=== PATIENT | female | born 1980 | race Caucasian/White ===

== ENCOUNTER → 2023-08-08 17:37 | Outpatient (REF) | payer OTHER, SELFPAY | LOC: HWWDC 17:37 | PROVIDERS: ATTENDING PHYSICIAN Obstetrics & Gynecology; FAMILY PHYSICIAN Family Medicine | DX: Z12.31 Encounter for screening mammogram for malignant neoplasm of breast (principal) | CPT/HCPCS: 77063; 77067 ==

== ENCOUNTER → 2023-08-19 13:17 | Outpatient (REF) | payer OTHER, SELFPAY | LOC: HWRAD 13:17 | PROVIDERS: ATTENDING PHYSICIAN Obstetrics & Gynecology; FAMILY PHYSICIAN Family Medicine | DX: Z00.01 Encounter for general adult medical examination with abnormal findings (principal); N92.0 Excessive and frequent menstruation with regular cycle | CPT/HCPCS: 76830; 76856 ==

== ENCOUNTER 2023-11-23 06:20 | Day surgery (SDC) | payer OTHER, SELFPAY ==
[2023-11-11 09:43] VITALS: BMI 31.9
[2023-11-11 10:00] LABS: % Basophils 0.3 % (0-2); % Eosinophils 0.8 % (0-6); % Immature Granulocytes 0.2 % (0-0.5); % Lymphocytes 22.6 % (20.5-51.1); % Monocytes 6.7 % (1.7-9.3); % Neutrophils 69.4 % (42.2-75.2); Absolute Eosinophils 0.1 10^3/uL (0-0.7); Absolute Lymphocytes 1.5 10^3/uL (1.2-3.4); Absolute Monocytes 0.4 10^3/uL (0.1-0.6); Absolute Neutrophils 4.6 10^3/uL (1.4-6.5); Hematocrit 37.2 % (37.0-47.0); Hemoglobin 12.5 g/dL (12.0-16.0); Mean Corp Hgb Conc. 33.6 g/dL (33.0-37.0); Mean Corpuscular Hgb 29.4 pg (27.0-31.0); Mean Corpuscular Volume 87.5 fL (81.0-99.0); Nucleated Red Blood Cells % 0 %; Platelet Count 255 10^3/uL (130-400); Red Blood Cell Count 4.25 10^6/uL (4.20-5.40); Red Cell Dist. Width 12.6 % (11.5-14.5); White Blood Cell Count 6.6 10^3/uL (4.8-10.8)
[2023-11-11 10:11] LABS: Blood Urea Nitrogen 13 mg/dl (7-17); Carbon Dioxide 25 mmol/L (22-30); Chloride 106 mmol/L (98-107); Estimated Creatinine Clearance 104 ml/min; Glucose 89 mg/dl (70-99); Potassium 4.3 mmol/L (3.5-5.1); Sodium 139 mmol/L (135-145); eGFR > 60.00
[2023-11-11 10:27] LABS: Beta HCG Quantitative < 2.39 mIU/ml
[2023-11-23] VITALS (9 sets, daily range): BP systolic 111–127; BP diastolic 66–81; BMI 31.9
[2023-11-23] MEDS: TYLENOL 1000 MG PO (10:19)
[2023-11-23] MEDS: NEURONTIN 100 MG PO (10:19)
[2023-11-23] MEDS: NORMOSOL-R 1000 IV (10:30)
--- NOTE | 2023-11-23 11:40 | W.SUR.PREOP ---
Pre-Operative Surgical Note
-
I have examined this patient prior to the performance of the scheduled procedure.
The patient's condition is unchanged from the time of the current History and
Physical and the patient is able to undergo the scheduled procedure.
--- NOTE | 2023-11-23 12:29 | W.IMMPOSTOP ---
Surgical Immed Post Op Note
-
Primary Surgeon: Osiris Ramirez,
Assisting Surgeon: none
Pre-op Diagnosis: menorrhagia, possible endometrial polyp
Post-op Diagnosis: same
Procedure Performed:Diagnostic hysteroscopy D&C
Anesthesia Type: general Dr. Danielle
Specimen / Cultures: 1. endocervical curettings 2. endometrial curettings
Estimated Blood Loss: less than 1 ml
Complications:none
Operative Findings: Uterus sounds to 7cm, polypoid tissue in cervical canal ? small polyps, endometrial cavity appears normal, no evidence of polyp, bilateral tubal ostia seen.
counts correct times 2.
stable to recovery.
== END 2023-11-23 15:27 | disposition home or self-care (01) ==
LOC: SDS 06:20
PROVIDERS: ATTENDING PHYSICIAN Obstetrics & Gynecology; FAMILY PHYSICIAN Family Medicine
DX: N85.9 Noninflammatory disorder of uterus, unspecified (principal); N92.0 Excessive and frequent menstruation with regular cycle
CPT/HCPCS: 58558; 88305; 36415; 80048; 84702; 85025; 86850; 86900; 86901